=== PATIENT | female | born 1985 | race Caucasian/White ===

== ENCOUNTER 2020-09-19 03:32 | Emergency (ER) | payer BC ==
[~2020-09-19] VITALS: Ht 175.3 cm; Wt 86.2 kg
--- NOTE | 2020-09-19 03:39 | NUR ---
BIBSELF FROM HOME AMBULATORY WITH C/O OF RIGHT LEG PAIN STARTED SINCE 09/01/2020 BUT GET WORST 2 DAYS AGO, PAIN LVL 810 TOOK TRAMADOL @ 0320 AND NAPROXEN @ 1800 WITH NO RELIEF, BREATHING EVEN AND UNLABORED, HOOK TO MONITOR AND SPOX WILL CONT TO MONITOR
--- NOTE | 2020-09-19 03:40 | NUR ---
DR PITT AT BED SIDE
--- NOTE | 2020-09-19 03:49 | NUR ---
BASTING PULLER AT BEDSIDE BLOOD DRAW DONE
[2020-09-19 04:03] LABS: BASOPHILS % (AUTO) 0.7 % (0.0-2.0); EOSINOPHILS % (AUTO) 1.7 % (0.0-6.0); HEMATOCRIT 40 % (33-45); HEMOGLOBIN 13.2 g/dL (11.5-14.8); LYMPHOCYTES # (AUTO) 1.7 /CMM (0.8-4.8); LYMPHOCYTES % (AUTO) 26.7 % (20.0-44.0); MEAN CORPUSCULAR HGB CONC 33 g/dl (31.0-36.0); MEAN CORPUSCULAR VOLUME 90 fL (82-100); MONOCYTES # (AUTO) 0.5 /CMM (0.1-1.30); MONOCYTES % (AUTO) 7.4 % (2.0-12.0); NEUTROPHILS # (AUTO) 4.1 /CMM (1.8-8.9); NEUTROPHILS % (AUTO) 63.5 % (43.0-81.0); PLATELET COUNT (AUTO) 238 /CMM (150-450); RED BLOOD CELL COUNT(AUTO) 4.43 MIL/uL (4.0-5.2); WHITE BLOOD COUNT (AUTO) 6.4 K/uL (4.3-11.0)
[2020-09-19 04:18] LABS: ALBUMIN 4.2 g/dL (3.4-5.0); BILIRUBIN,TOTAL 0.9 mg/dL (0.2-1.0); CREATININE 0.8 mg/dL (0.6-1.3); POTASSIUM 3.2 mmol/L (3.5-5.1); TOTAL PROTEIN, SERUM 7.2 g/dL (6.4-8.2)
--- NOTE | 2020-09-19 04:25 | NUR ---
US TECH AT BEDSIDE
[2020-09-19] MEDS ORDERED: POTASSIUM CHLORIDE 20 MEQ TAB.PRT.SR PO ONE ×2 (04:26→04:30)
--- NOTE | 2020-09-19 04:54 | NUR ---
PRELIMINARY US NEGATIVE
[2020-09-19] MEDS ORDERED: HYDROCODONE/APAP 5/325MG TABLET ONE (05:08)
[2020-09-19] MEDS ORDERED: HYDR-4303 PO (05:08)
[2020-09-19 05:20] VITALS: BP 106/74
--- NOTE | 2020-09-19 05:20 | NUR ---
Patient discharged to home in stable condition. Written and verbal after care instructions given. Patient verbalizes understanding of instruction.Ms Sow is ambulatory with a steady gait
[2020-09-19] MEDS ORDERED: HYDROCODONE/APAP 5/325MG TABLET PO ONE (05:30)
== END 2020-09-19 05:21 | disposition home or self-care (01) ==
LOC: ER 03:37
DX: E87.6 Hypokalemia (principal); M79.604 Pain in right leg
CPT/HCPCS: 36415; 80053-TC; 85025-TC; 93971-TC